=== PATIENT | female | born 1975 | race Two or more races ===

== ENCOUNTER 2017-01-20 16:15 | Emergency (ER) | payer MEDICAID ==
[~2017-01-20] VITALS: Ht 162.6 cm; Wt 65.8 kg
--- NOTE | 2017-01-20 16:30 | NUR ---
[id number], came to ER c/o RLQ ABDOMINAL PAIN SINCE 0300AM. NAUSEA, VOMITING +. RR is even and unlabored with NAD noted. Skin is warm and non diaphoretic. Awaiting MD for eval.
[2017-01-20 16:47] LABS: APPEARANCE,URINE Slightly Cloudy (CLEAR); BILIRUBIN,URINE SMALL (NEGATIVE); BLOOD, URINE Trace-lysed Ery/uL (NEGATIVE); COLOR,URINE Yellow (YELLOW); KETONES,URINE 80 (NEGATIVE); LEUKOCYTE ESTERASE ,URINE Negative (NEGATIVE); NITRITE, URINE Negative (NEGATIVE); PH,URINE 5.5 (5.0-8.0); PROTEIN,URINE Trace mg/dl (NEGATIVE); UGLUCOSE Negative (NEGATIVE); UROBILINOGEN,URINE 0.2 EU/dL (0.2)
[2017-01-20 16:55] LABS: BASOPHILS # (AUTO) 0.5 /CMM (0.0-0.2); BASOPHILS % (AUTO) 2.3 % (0.0-2.0); EOSINOPHILS % (AUTO) 0.2 % (0.0-6.0); HEMATOCRIT 42 % (33-45); HEMOGLOBIN 13.9 g/dL (11.5-14.8); LYMPHOCYTES # (AUTO) 1.3 /CMM (0.8-4.8); LYMPHOCYTES % (AUTO) 6.4 % (20.0-44.0); MEAN CORPUSCULAR HEMOGLOBIN 28 PG (26.0-33.0); MEAN CORPUSCULAR HGB CONC 33 g/dl (31.0-36.0); MEAN CORPUSCULAR VOLUME 85 fL (82-100); MONOCYTES # (AUTO) 0.7 /CMM (0.1-1.30); MONOCYTES % (AUTO) 3.5 % (2.0-12.0); NEUTROPHILS # (AUTO) 17.8 /CMM (1.8-8.9); NEUTROPHILS % (AUTO) 87.6 % (43.0-81.0); PLATELET COUNT (AUTO) 312 /CMM (150-450); RDW COEFFICIENT OF VARIATION 11.7 (11.5-15.0); RED BLOOD CELL COUNT(AUTO) 4.91 MIL/uL (4.0-5.2); WHITE BLOOD COUNT (AUTO) 20.3 K/uL (4.3-11.0)
[2017-01-20] MEDS ORDERED: ONDANSETRON HCL/PF 4 MG/2 ML VIAL IVP ONE (17:00)
[2017-01-20] MEDS ORDERED: METRONIDAZOLE 500MG/ NS 100ML 500 MG in PREMIX 1 EA IV SCH (17:00)
[2017-01-20] MEDS ORDERED: IV NS 0.9% 1,000 ML BAG IV ONE ×2 (17:00→18:00)
[2017-01-20] MEDS ORDERED: MORPHINE SULFATE INJ 2 MG/ML DISP.SYRIN IV ONE (17:00)
[2017-01-20] MEDS ORDERED: CIPROFLOXACIN IV RTU 400 MG in PREMIX 1 EA IV SCH (17:00)
[2017-01-20 17:06] LABS: CALCIUM, SERUM 8.5 mg/dL (8.5-10.1); CREATININE 0.9 mg/dL (0.6-1.3); POTASSIUM 4.8 mmol/L (3.5-5.1)
[2017-01-20 17:09] LABS: INR 0.9 (0.87-1.13); PROTHROMBIN TIME 9.4 SECS (9.5-12.7)
[2017-01-20 17:11] LABS: ALBUMIN 3.8 g/dL (3.4-5.0); BILIRUBIN,DIRECT 0.1 mg/dL (0.0-0.2); BILIRUBIN,TOTAL 0.7 mg/dL (0.2-1.0); TOTAL PROTEIN, SERUM 7.5 g/dL (6.4-8.2)
[2017-01-20 17:12] LABS: BACTERIA,URINE Few /HPF (None Seen); SQUAMOUS EPITHELIAL CELL,UR Moderate /HPF (None Seen); URINE AMORPHOUS URATE Moderate /HPF (None Seen); WBC,URINE 0-2 /HPF (0-3)
[2017-01-20] MEDS ORDERED: MORPHINE SULFATE INJ 4 MG/ML DISP.SYRIN ONE (17:15)
[2017-01-20] MEDS ORDERED: ONDANSETRON HCL/PF 4 MG/2 ML VIAL ONE ×2 (17:15→18:20)
--- NOTE | 2017-01-20 17:15 | NUR ---
ULTRASOUND IN PROGRESS AT BS
--- NOTE | 2017-01-20 17:49 | NUR ---
CALLED DR LORENZO, ON THE PHONE WITH DR ODONNELL.
--- NOTE | 2017-01-20 18:03 | NUR ---
Corbin Campos - CALLED - SPOKE TO THE NURSING CHANNEL CEMENTER - ARIANNA BARRAGAN; WILL FAX THE DOCUMENTS TO [facility]. THE CHANNEL CEMENTER ALSO WANTS DR. JAMISON TO CALL HER ABOUT THE TRANSFER
[2017-01-20] MEDS ORDERED: HYDROMORPHONE INJ 2 MG/ML DISP.SYRIN ONE (18:13)
--- NOTE | 2017-01-20 18:23 | NUR ---
[facility] #[id number] CALLED MED RESPONSE ETA OF 1944 WAS GIVEN
[2017-01-20] MEDS ORDERED: HYDROMORPHONE 1 MG/1 ML DISP.SYRIN IV ONE (18:30)
[2017-01-20] MEDS ORDERED: ONDANSETRON HCL/PF - ER 4 MG/2 ML VIAL IV ONE (18:30)
[2017-01-20 18:37] VITALS: BP 130/70
--- NOTE | 2017-01-20 19:05 | NUR ---
Patient discharged to EMS GOING TO [facility] in stable condition. Written and verbal after care instructions given. Patient AND EMS verbalized understanding of instruction.
== END 2017-01-20 19:07 | disposition short-term general hospital (02) ==
LOC: ER 16:17
DX: K66.1 Hemoperitoneum (principal); N83.201 Unspecified ovarian cyst, right side
CPT/HCPCS: 36415; 76705; 76856; 80048; 80076; 81001; 83690; 84702; 84703; 85025; 85730; 86850; 96361; 96374 ×2; 96375; 96376; 99291; A4606; J1170; J2270; J2405 ×2; J7030 ×2; Z7610; 81000-TC; A4216; J0744; J3490